=== PATIENT | female | born 1945 | race Caucasian/White ===

== ENCOUNTER → 2019-03-08 15:29 | Outpatient (CLI) | payer SELFPAY, OTHER ==
--- NOTE | 2019-03-08 15:54 | MRI_ITS ---
STUDY: MRI RIGHT FOREFOOT WITHOUT CONTRAST REASON FOR EXAM: Female, 73 years old. FB GLASS MARKED WITH bead -- distal MT''s x 1 month TECHNIQUE: Standardized fat and water weighted pulse sequences were obtained in all 3 orthogonal planes. COMPARISON: None. FINDINGS: There is degenerative arthrosis of the metatarsophalangeal joint of the hallux. Normal tibial and fibular sesamoids, with normal sesamoids-first metatarsal articulations. Normal interphalangeal joint of the hallux. Normal proximal and distal phalanges of the great toe. Normal medial and lateral heads of the flexor hallucis brevis tendons. Normal flexor and extensor hallucis longus tendons. Arthritic change at the second MTP joint Normal third through fifth metatarsophalangeal (MTP) joints. Mild arthritic changes of the interphalangeal joints of the second through fifth toes. Normal proximal, middle and distal phalanges of the second through fifth toes. Normal first through fourth intermetatarsal spaces. Normal flexor and extensor tendons of the second through fifth toes. Normal visualized metatarsi. Normal intrinsic muscles of the forefoot. There is no demonstrated soft tissue abnormality. There is no demonstrated foreign body. No acute fracture. MRI/Lower Ext/No Jt/w/o IMPRESSION: No foreign body identified. No fluid collection or abscess. No fracture or periosteal reaction. Arthritic change at the MTP joints. Electronically Signed: Jm Faust MD at 21:35 EST , Service support ,
== END ==
PROVIDERS: Referring Provider Podiatrist; Visit Provider Podiatrist
DX: S99.821D Other specified injuries of right foot, subsequent encounter (principal); X58.XXXD Exposure to other specified factors, subsequent encounter
CPT/HCPCS: 73718